=== PATIENT | male | born 1990 | race Hispanic/Latino ===

== ENCOUNTER 2021-05-22 17:09 | Emergency (ER) | payer BC ==
[2021-05-22] MEDS ORDERED: Lidocaine 1% (PF) 30 ML VIAL ONE (19:48)
[2021-05-22] MEDS ORDERED: Naproxen 500 MG TAB ONE (20:21)
== END 2021-05-22 20:31 | disposition home or self-care (01) ==
LOC: ERS 17:09
DX: L02.416 Cutaneous abscess of left lower limb (principal); Z87.891 Personal history of nicotine dependence
CPT/HCPCS: 10060; J2001

== ENCOUNTER 2022-05-26 20:47 | Emergency (ER) | payer OTHER, SELFPAY ==
[2022-05-26] MEDS ORDERED: Lidocaine 1% PF 5 ML VIAL ONE (21:45)
== END 2022-05-26 22:30 | disposition home or self-care (01) ==
LOC: ERS 20:47
DX: L02.415 Cutaneous abscess of right lower limb (principal); L03.115 Cellulitis of right lower limb
CPT/HCPCS: 10060